=== PATIENT | male | born 1955 | race Caucasian/White ===

== ENCOUNTER → 2020-09-27 | Outpatient (CLI) | payer MEDICARE ==
[~2020-09-27] MED LIST: AMIODARONE HCL200 MG PO; ASPIRIN325 MG PO; ATORVASTATIN CA40 MG PO; COREG6.25 MG PO; COUMADIN 1MG TAB1 MG PO; COUMADIN3 MG PO; COUMADIN4 MG PO; COUMADIN5 MG PO; EMBEDA ER 30-11 EACH PO; KLONOPIN TAB 00.5 MG PO; LOVENOX SY80 MG/0.8 SQ; LOVENOX80 MG/0.8 SC; NEXIUM40 MG PO; NIACIN1000 MG PO; NIFEREX 150 MG150 MG PO; NITROSTAT0.4 MG SL; NORCO 10-325 T1 EACH PO; VIAGRA100 MG PO; VITAMIN B-1000 MCG/M IM; VITAMIN D50000 UNIT PO
== END ==
LOC: HEART 5 09:08
DX: L57.0 Actinic keratosis (principal); Z79.899 Other long term (current) drug therapy; R94.2 Abnormal results of pulmonary function studies
CPT/HCPCS: 94010; 94729

== ENCOUNTER → 2021-05-27 | Outpatient (CLI) | payer MEDICARE ==
[~2021-05-27] VITALS: Ht 172.7 cm; Wt 83.0 kg
== END ==
LOC: EROP 11:42
DX: U07.1 COVID-19 (principal)
CPT/HCPCS: 96365

== ENCOUNTER → 2021-11-08 | Outpatient (CLI) | payer MEDICARE ==
[2021-11-08 12:30] LABS: HEMOGLOBIN 6.5 gm/dl (14.0-17.5)
== END ==
LOC: OPSV 11:54
PROVIDERS: Internal Medicine
DX: D64.9 Anemia, unspecified (principal)
CPT/HCPCS: 36415; 85014; 85018; 86850; 86870; 86900; 86901; 86920; 86922; J7050; P9016

== ENCOUNTER → 2021-11-09 | Outpatient (CLI) | payer MEDICARE | LOC: OPSV 10:00 | DX: D64.9 Anemia, unspecified (principal) | CPT/HCPCS: 36430 ==

== ENCOUNTER → 2021-11-11 | Outpatient (CLI) | payer MEDICARE ==
[2021-11-11 15:28] LABS: HEMOGLOBIN 8.3 gm/dl (14.0-17.5); RED BLOOD COUNT 2.66 M/UL (4.20-5.50)
[2021-11-11 16:00] LABS: BUN/CREATININE RATIO 20 (0-10)
[2021-11-15 10:36] LABS: WHITE BLOOD COUNT 195.1 K/UL (4.5-11.0)
== END ==
LOC: LAB 14:17
PROVIDERS: Internal Medicine
DX: C91.10 Chronic lymphocytic leukemia of B-cell type not having achieved remission (principal)
CPT/HCPCS: 36415; 80048; 85025

== ENCOUNTER → 2021-12-22 | Outpatient (CLI) | payer MEDICARE | LOC: HEART 5 15:08 | DX: R06.02 Shortness of breath (principal); Z79.899 Other long term (current) drug therapy | CPT/HCPCS: 94060; 94729 ==